=== PATIENT | female | born 1950 | race Hispanic/Latino ===

== ENCOUNTER 2024-08-22 21:29 | Emergency (ER) | payer OTHER, BC ==
--- NOTE | 2024-08-22 22:29 | RAD REPORT ---
EXAMINATION: CT HEAD WITHOUT CONTRAST CT CERVICAL SPINE WITHOUT CONTRAST CLINICAL INDICATION: Brain cancer. Neck pain. Confusion. TECHNIQUE: Axial CT images from the skull base to the vertex without intravenous contrast. Axial CT i mages through the cervical spine were obtained without intravenous contrast. Sagittal and coronal reformatted images were created from the data set. Coronal and sagittal reformatted images were creat ed from the data set. One or more of the following dose reduction techniques were used: Automated exposure control, adjustment of the mA and/or kV according to patient size, and/or iterative reconstr uction. Unless otherwise specified, incidental findings do not require dedicated imaging follow-up. [id number]. Comparison: none FINDINGS: An intracranial bleed is not seen. Ventricles are normal in caliber. Marked low density is present within periventricular, deep and subcortical white matter. No extra-axial fluid collection. No fluid within the sinuses/mastoids No fracture or dislocation is seen involving the cervical spine.. Mild spondylosis cervical spine IMPRESSION: Marked low density is present within periventricular, deep and subcortical white matter. This probabl y is secondary to a demyelinating process. Comparison to previous imaging would be helpful to assess for progression/stability. A cervical fracture is not seen. No high-grade stenosis seen MRI of the brain with contrast may be helpful for further evaluation.
--- NOTE | 2024-08-22 22:30 | RAD REPORT ---
Procedure: Chest Single View HISTORY: Chest pain COMPARISON: none FINDINGS: The lungs appear clear of acute infiltrate. No significant pleural effusion noted. The heart is normal size. IMPRESSION: No acute abnormality is displayed.
[2024-08-22 22:45] LABS: PT Prothrombin Time 11.4 SECONDS (10-13.0)
[2024-08-22 22:50] LABS: Absolute Basophils 0.1 K/uL (0-0.5); Absolute Monocytes 0.4 K/uL (0.1-1.3); Absolute Neutrophil 11.1 K/uL (1.8-8.0); Basophils % 0.6 % (0-1.3); Eosinophils % 0.1 % (0-4.4); Hematocrit 49.2 % (36.0-45.0); Hemoglobin 16.8 g/dL (12.0-15.0); Lymphocytes % 8.2 % (15.3-44.8); MCH 30.7 pg (27.0-35.0); MCHC 34.1 g/dL (32.0-36.0); MCV 89.9 fL (80-100); MPV 8.5 fL (7.6-11.3); Monocytes % 2.9 % (3.3-12.3); Neutrophils % 88.2 % (41.7-73.7); Platelets 213 thou/uL (152-406); RBC Red Blood Cell Count 5.47 M/uL (3.86-4.86); Red Cell Distribution Width 13.3 % (12.1-15.2)
[2024-08-22 22:59] LABS: Albumin 3.3 g/dL (3.4-5.0); Albumin/Globulin Ratio 0.8 (1.1-1.8); Anion Gap 11.6 mEq/L (5.0-15.0); Bilirubin Direct 0.3 mg/dL (0-0.2); Bilirubin Indirect, Calculated 1.2 mg/dL (0.2-0.8); Bilirubin Total 1.5 mg/dL (0.2-1.0); Globulin 4.3 g/dL (2.3-3.5); Magnesium 2.1 mg/dL (1.6-2.4); Potassium 4.6 mEq/L (3.5-5.1); Protein, Total 7.6 g/dL (6.4-8.2); Troponin High Sensitivity 3.6 pg/mL (<58.9)
[2024-08-22] MEDS ORDERED: ONDANSETRON 4 MG/2 ML VIAL ONE (23:06)
[2024-08-22] MEDS ORDERED: METOCLOPRAMIDE 10 MG/2mL INJ ONE (23:06)
[2024-08-22] MEDS ORDERED: NA CHLORIDE 0.9% 1,000 ML ONE (23:11)
[2024-08-23 01:24] LABS: Band Neutrophils 4 % (0-1); Differential Total Cells Count 100; Lymphocytes 6 % (15-42); Monocytes 3 % (0-10); Reactive Lymphocytes 4 %; Segmented Neutrophils 83 % (40-80)
[2024-08-23 01:25] LABS: Blood Morphology Comment NOT SEEN (NOT SEEN); Platelet Estimate ADEQ
[2024-08-23] MEDS ORDERED: CEFTRIAXONE 1000 MG/VIAL ONE (02:11)
[2024-08-23] MEDS ORDERED: NA CHLORIDE 0.9% 50 ML ONE (02:11)
[2024-08-23] MEDS ORDERED: METRONIDAZOLE 500mg IVPB 500 MG/100 ML BAG IV ONE (02:11)
[2024-08-23 02:20] LABS: Specific Gravity 1.022 (1.005-1.030); Sqamous Epithelial None Seen /HPF (None Seen); Urine Bacteria None Seen /HPF (<20); Urine Bilirubin NEGATIVE (Negative); Urine Blood 1+ (Negative); Urine Clarity Clear (Clear); Urine Color Yellow (Yellow); Urine Culture Reflex Order NOT NEEDED; Urine Glucose NEGATIVE (Negative); Urine Ketones TRACE (Negative); Urine Micro Reflex YN NO BILL MICROSCOPIC; Urine Mucus Slight /HPF (None Seen); Urine Nitrite NEGATIVE (Negative); Urine Protein NEGATIVE (Negative); Urine Urobilinogen 2+ (Normal); Urine WBC <5 /HPF (<5); Urine pH 6.5 (5.0-7.0)
--- NOTE | 2024-08-23 03:43 | ER ---
Nurse's Notes [facility] Name: Reina Cao Age: 74 yrs Sex: Female : 1950 Arrival Date: 08/22/2024 Time: 21:29 Bed 27 Private MD: Diagnosis: Acute mental status changes, generalized weakness, abnormal CT scan, Cerebral periventricular demyelination, acute encephalopathy Presentation: 08/22 21:34 Chief complaint: EMS states: FAMILY MEMBER REPORTS SHE IS NOT BEING HER NORMAL. FEELING ha1 WEAK AND A LITTLE CONFUSED AND NAUSEA. 21:34 Coronavirus screen: Client denies travel out of the [place] in the last 14 days. Ebola ha1 Screen: Patient negative for fever greater than or equal to 101.5 degrees Fahrenheit, and additional compatible Ebola Virus Disease symptoms. Initial Sepsis Screen: Does the patient meet any 2 criteria? No. Patient's initial sepsis screen is negative. Does the patient have a suspected source of infection? No. Patient's initial sepsis screen is negative. Risk Assessment: Do you want to hurt yourself or someone else? Patient reports no desire to harm self or others. Onset of symptoms was August 22, 2024. 21:34 Method Of Arrival: EMS: [facility] ha1 21:34 Acuity: ERASMO 3 ha1 Triage Assessment: 21:34 General: Appears comfortable, Behavior is calm, cooperative. Pain: Denies pain. Neuro: ha1 Level of Consciousness is awake, obeys commands, lethargic, Oriented to person, place, situation. Cardiovascular: Patient's skin is warm and dry. Respiratory: Airway is patent Respiratory effort is even, unlabored, Respiratory pattern is regular, symmetrical. GI: Abdomen is round non-distended, Reports nausea. Historical: - Allergies: 21:34 Bees; ha1 - Home Meds: 21:34 Keppra Oral [Active]; Carbidopa-Levodopa Oral [Active]; levetiracetam oral [Active]; ha1 - PMHx: 21:34 Diabetes mellitus; BRAIN CANCER; ha1 - PSHx: 21:34 BRAIN SURGERY; ha1 - Immunization history:: Adult Immunizations up to date. - Infectious Disease History:: Denies. - Social history:: Smoking status: Patient denies any tobacco usage or history of. - Family history:: not pertinent. Screenin/09 01:24 [facility] ED Fall Risk Assessment (Adult) History of falling in the last 3 months, jb4 including since admission No falls in past 3 months (0 pts) Confusion or Disorientation No (0 pts) Intoxicated or Sedated No (0 pts) Impaired Gait No (0 pts) Mobility Assist Device Used No (0 pt) Altered Elimination No (0 pt) Score/Fall Risk Level 0 - 2 = Low Risk Oriented to surroundings, Maintained a safe environment. Abuse screen: Denies threats or abuse. Nutritional screening: No deficits noted. Tuberculosis screening: No symptoms or risk factors identified. Assessment: 08/22 23:30 Reassessment: Pt remains lethargic, and oriented x2. Respirations are even and jb4 unlabored with no s/s of distress noted. 08/23 00:30 Reassessment: Patient appears in no apparent distress at this time. No changes from jb4 previously documented assessment. Patient and/or family updated on plan of care and expected duration. Pain level reassessed. 01:22 Reassessment: Patient appears in no apparent distress at this time. No changes from jb4 previously documented assessment. Patient and/or family updated on plan of care and expected duration. Pain level reassessed. 02:04 Reassessment: Pt noted to be a very difficult stick. IV established by [place] Ann via jb4 ultrasound. Provider made aware of this, instructed to cancel second set of blood cultures and to give antibiotics after the first set. 02:53 Reassessment: Pt remains lethargic. Is now A\\T\\O x1, respirations are even and unlabored jb4 with no s/s of pain or distress noted. 04:00 Reassessment: eyes closed. Respiratory: Airway is patent Respiratory effort is even, ha1 unlabored, Respiratory pattern is regular, symmetrical. 05:14 Reassessment: eyes closed. Respiratory: Airway is patent Respiratory effort is even, ha1 unlabored, Respiratory pattern is regular, symmetrical. 06:00 Reassessment: eyes closed. Respiratory: Airway is patent Respiratory effort is even, ha1 unlabored, Respiratory pattern is regular, symmetrical. 06:10 Reassessment: awaiting of transfer. ha1 10:25 General: Appears in no apparent distress. uncomfortable, Behavior is calm, cooperative, jl7 drowsy. Pain: Denies pain. Neuro: Level of Consciousness is obeys commands, drowsy, responds easily to voice. Oriented to person. Cardiovascular: Patient's skin is warm and dry. Derm: Skin is pink, warm \\T\\ dry. Vital Signs: 08/22 21:34 BP 133 / 107; Pulse 97; Resp 17 S; Temp 99(O); Pulse Ox 98% on R/A; Weight 81.65 kg; ha1 Height 5 ft. 2 in. ; 23:46 BP 106 / 63; Pulse 100; Resp 16; Pulse Ox 98% on R/A; jb4 08/23 01:15 BP 125 / 91; Pulse 87; Resp 16; Pulse Ox 100% on R/A; jb4 02:45 BP 109 / 78; Pulse 79; Resp 13; Pulse Ox 99% on R/A; jb4 04:10 BP 116 / 72; Pulse 77; Resp 16 S; Pulse Ox 100% on R/A; ha1 05:20 BP 102 / 80; Pulse 75; Resp 17 S; Temp 97.4(T); Pulse Ox 100% on R/A; ha1 06:00 BP 101 / 72; Pulse 84; Resp 17 S; Pulse Ox 99% on R/A; ha1 10:23 BP 91 / 60; Pulse 70; Resp 15; Temp 97.6; Pulse Ox 100% ; jl7 08/22 21:34 Body Mass Index 32.92 (81.65 kg, 157.48 cm) ha1 [place] Coma Score: 03:36 Eye Response: to voice(3). Motor Response: obeys commands(6). Verbal Response: sp4 confused(4). Total: 13. NIH Stroke Scale Scores: 03:36 NIHSS Score: 2 sp4 ED Course: 08/22 21:34 Patient arrived in ED. rv1 21:36 Tayo Bain MD is Attending Physician. sp4 21:40 Missed attempt(s): 22 gauge in right hand. attempted by CLEO Ritter tech.. Bleeding jb4 controlled, band aid applied, catheter tip intact. 21:45 Missed attempt(s): 22 gauge in right antecubital area. Bleeding controlled, band aid jb4 applied, catheter tip intact. 21:49 Triage completed. ha1 22:00 Inserted saline lock: 20 gauge in left antecubital area, using aseptic technique. Blood ha1 collected. Flushed with 10 mL NS Accessed peripheral vein via ultrasound, utilizing dynamic ultrasound technique. 22:12 XRAY Chest (1 view) In Process Unspecified. EDMS 22:16 CT Head C Spine In Process Unspecified. EDMS 04 00:00 Patient has correct armband on for positive identification. Bed in low position. Call jb4 light in reach. Side rails up X 1. Provided Education on: plan of care to family. 00:00 No provider procedures requiring assistance completed. jb4 02:17 Geraldo Dupont, RN is Primary Nurse. jb4 03:32 Initiated transfer with Janet at [facility]. rv1 03:50 Doc to Doc with Neurologist. rv1 04:00 Doc to Doc with hospitalist. rv1 04:16 Troponin High Sensitivity Sent. rk3 05:28 Called transfer center to get update on Transfer. Cinthia informed that the patient was rv1 on the wait list for a tele bed. Transfer center will call back when one becomes available. 07:06 Primary Nurse role handed off by Geraldo Dupont, RN bd 07:12 contacted Jessica at [facility] transfer center, "bed is still pending". bd 10:00 pt accepted in transfer to [facility] rm [id number] Hatfield admin approval given by coby Torre. 10:25 Client placed on continuous cardiac and pulse oximetry monitoring. NIBP monitoring jl7 applied. hospital monitor on. Pulse ox on. 10:25 Patient transferred, IV remains in place. intact, No redness/swelling at site. jl7 Administered Medications: 08/22 23:20 Drug: NS 0.9% IV 1000 ml IV at 1 bolus Per protocol; to be given as a bolus over 60 jb4 minutes Route: IV; Rate: 1 bolus; Site: left antecubital; 08/23 00:20 Follow up: IV Status: Completed infusion; IV Intake: 1000ml vc1 08/22 23:20 Drug: metoCLOPramide IVP 10 mg IVP once; over 1 to 2 minutes Route: IVP; Site: left jb4 antecubital; 08/23 00:17 Follow up: Response: No adverse reaction; Marked relief of symptoms jb4 08/22 23:20 Drug: Ondansetron IVP 8 mg IVP once; over 2 minutes Route: IVP; Site: left antecubital; jb4 08/23 00:17 Follow up: Response: No adverse reaction; Marked relief of symptoms jb4 02:17 Drug: Rocephin - Rocephin (cefTRIAXone) IVPB 1 grams IVPB once over 30 mins; (mix in 50 jb4 mL NS) Route: IVPB; Infused Over: 30 mins; Site: left antecubital; 02:47 Follow up: Response: No adverse reaction; Marked relief of symptoms; IV Status: jb4 Completed infusion; IV Intake: 50ml 02:47 Drug: metroNIDAZOLE IVPB 500 mg 100 ml IVPB at 200 ml/hr once over 30 mins Volume: 100 jb4 ml; Route: IVPB; Rate: 200 ml/hr; Infused Over: 30 mins; Site: left antecubital; 03:00 Follow up: IV Status: Completed infusion vc1 05:55 Drug: Ketorolac IVP 30 mg IVP once Route: IVP; Site: left antecubital; vc1 06:20 Follow up: Response: No adverse reaction; Marked relief of symptoms ha1 05:55 Drug: Ondansetron IVP 4 mg IVP once; over 2 minutes Route: IVP; Site: left antecubital; vc1 06:20 Follow up: Response: No adverse reaction; Marked relief of symptoms ha1 08:12 Drug: D5-NS IV 1000 ml IV at 100 ml/hr continuous Route: IV; Rate: 100 ml/hr; Site: ph left antecubital; Medication: 05:28 VIS not applicable for this client. ha1 Intake: 00:20 IV: 1000ml; Total: 1000ml. vc1 02:47 IV: 50ml; Total: 1050ml. jb4 Outcome: 03:42 ER care complete, transfer ordered by MD. russell 11:44 Transferred by ground EMS to [facility], Transfer form completed. jl7 X-rays sent w/ patient. 11:44 Condition: stable 11:44 Discharge instructions given to EMS, Instructed on the need for admit, 11:44 Patient left the ED. jl7 NIH Stroke Scale - NIH Stroke Score Date: 08/23/2024 Time: 03:36 Total Score = 2 10. Dysarthria (speech clarity - read or repeat words) - 0(Normal) 11. Extinction and Inattention (visual/tactile/auditory/spatial/personal) - 0(No abnormality) 1a. Level of Consciousness (LOC) - 0(Alert) 1b. Level of Consciousness (LOC) (Month \\T\\ Age) - 2(Neither) 1c. LOC Commands (Open \\T\\ Closes Eyes/Customer Operations Intern) - 0(Both) 2. Best Gaze (Lateral Gaze Paresis) - 0(Normal) 3. Visual Field Loss - 0(No visual loss) 4. Facial Palsy - 0(Normal) 5a. Left Arm: Motor (10-second hold) - 0(No drift) 5b. Right Arm: Motor (10-second hold) - 0(No drift) 6a. Left Leg: Motor (5-second hold - always test supine) - 0(No drift) 6b. Right Leg: Motor (5-second hold - always test supine) - 0(No drift) 7. Limb Ataxia (finger/nose \\T\\ heel/wright - test with eyes open) - 0(Absent) 8. Sensory Loss (pinprick arms/legs/face) - 0(Normal) 9. Best Language: Aphasia (description/naming/reading) - 0(No aphasia) Initials: sp4 Signatures: Dispatcher [employer] EDMS Edwige Brown Patricia, RN RN Geraldo Rush, RN RN jb4 Kimmie Kyle RN RN jl7 Annalisa Bailey RN RN 1 Marissa Jaimes, RN RN ha1 Rita Shore rv1 Tayo Bain MD MD sp4 Erick Wilhelm rk3 Corrections: (The following items were deleted from the chart) 08/22 21:52 21:34 Allergies: No Known Allergies; ha1 ha1 21:54 21:34 Chief complaint: EMS states: FAMILY MEMBER REPORTS SHE IS NOT BEING HER ha1 NORMAL. FEELING WEAK AND A LITTLE CONFUSED ha1 08/23 05:31 03:32 Initiated transfer with Cinthia at [facility] rv1 rv1
--- NOTE | 2024-08-23 03:43 | EDPHYS ---
Physician Documentation [facility] Name: Reina Cao Age: 74 yrs Sex: Female : 1950 Arrival Date: 08/22/2024 Time: 21:29 Bed 27 Private MD: ED Physician Tayo Bain HPI: 08/23 01:21 This 74 yrs old Female presents to ER via EMS with complaints of Altered sp4 Mental Status. 03:33 74-year-old female with history of prior brain mass resection at [facility] 3 years sp4 ago history of diabetes as well, presents with acute onset of lethargy and confusion starting at 12 PM. Patient reportedly had several episodes of bilious vomiting loss of appetite he also developed generalized weakness. Patient's family then reported patient was not acting herself.. On arrival patient is alert and oriented to self and others only. No signs of lateralizing deficit. Historical: - Allergies: 08/22 21:34 Bees; ha1 - Home Meds: 21:34 Keppra Oral [Active]; Carbidopa-Levodopa Oral [Active]; levetiracetam oral [Active]; ha1 - PMHx: 21:34 Diabetes mellitus; BRAIN CANCER; ha1 - PSHx: 21:34 BRAIN SURGERY; ha1 - Immunization history:: Adult Immunizations up to date. - Infectious Disease History:: Denies. - Social history:: Smoking status: Patient denies any tobacco usage or history of. - Family history:: not pertinent. ROS: 08/23 03:36 Constitutional: Negative for fever, chills, and weight loss, positive for acute sp4 generalized weakness, positive for vomiting, positive for acute confusion All other systems are negative, Exam: 03:36 Constitutional: This is a well developed, well nourished patient who is awake, alert, sp4 and in no acute distress. Head/Face: Normocephalic, atraumatic. Eyes: Pupils equal round and reactive to light, extra-ocular motions intact. Lids and lashes normal. Conjunctiva and sclera are not injected. Cornea within normal limits. Periorbital areas with no swelling, redness, or edema. ENT: Nares patent. No nasal discharge, no septal abnormalities noted. Tympanic membranes are normal and external auditory canals are clear. Oropharynx with no redness, swelling, or masses, exudates, or evidence of obstruction, uvula midline. Mucous membranes moist. Neck: Trachea midline, no thyromegaly or masses palpated, and no cervical lymphadenopathy. Supple, full range of motion without nuchal rigidity, or vertebral point tenderness. Chest/axilla: Normal chest wall appearance and motion. Nontender with no deformity. No lesions are appreciated. Cardiovascular: Regular rate and rhythm with a normal S1 and S2. No gallops, murmurs, or rubs. Normal PMI, no JVD. No pulse deficits. Respiratory: Lungs have equal breath sounds bilaterally, clear to auscultation and percussion. No rales, rhonchi or wheezes noted. No increased work of breathing, no retractions or nasal flaring. Abdomen/GI: Soft, with normal bowel sounds. No distension or tympany. No guarding or rebound. No evidence of tenderness throughout. Back: No spinal tenderness. No costovertebral tenderness. Female : Normal external genitalia. Skin: Warm, dry with normal turgor. Normal color with no rashes, no lesions, and no evidence of cellulitis. MS/ Extremity: Pulses equal, no cyanosis. Neurovascular intact. Full, normal range of motion. Neuro: Awake and alert, oriented to person, Cranial nerves II-XII grossly intact. Motor strength 5/5 in all extremities. Sensory grossly intact. Patient has generalized weakness no signs of focal deficits, is difficult time following commands during examination. No signs of lateralizing weakness 03:40 ECG was reviewed by the Attending Physician. EKG at 2203 normal sinus rhythm rate 94. sp4 Vital Signs: 08/22 21:34 BP 133 / 107; Pulse 97; Resp 17 S; Temp 99(O); Pulse Ox 98% on R/A; Weight 81.65 kg; ha1 Height 5 ft. 2 in. ; 23:46 BP 106 / 63; Pulse 100; Resp 16; Pulse Ox 98% on R/A; jb4 08/23 01:15 BP 125 / 91; Pulse 87; Resp 16; Pulse Ox 100% on R/A; jb4 02:45 BP 109 / 78; Pulse 79; Resp 13; Pulse Ox 99% on R/A; jb4 04:10 BP 116 / 72; Pulse 77; Resp 16 S; Pulse Ox 100% on R/A; ha1 05:20 BP 102 / 80; Pulse 75; Resp 17 S; Temp 97.4(T); Pulse Ox 100% on R/A; ha1 06:00 BP 101 / 72; Pulse 84; Resp 17 S; Pulse Ox 99% on R/A; ha1 10:23 BP 91 / 60; Pulse 70; Resp 15; Temp 97.6; Pulse Ox 100% ; jl7 08 21:34 Body Mass Index 32.92 (81.65 kg, 157.48 cm) ha1 NIH Stroke Scale Scores: 03:36 NIHSS Score: 2 sp4 Stanislaw Coma Score: 03:36 Eye Response: to voice(3). Motor Response: obeys commands(6). Verbal Response: sp4 confused(4). Total: 13. MDM: 01:04 Medical Screening Exam initiated sp4 01:24 ED course: EXAMINATION: CT HEAD WITHOUT CONTRAST CT CERVICAL SPINE WITHOUT CONTRAST sp4 CLINICAL INDICATION: Brain cancer. Neck pain. Confusion. TECHNIQUE: Axial CT images from the skull base to the vertex without intravenous contrast. Axial CT images through the cervical spine were obtained without intravenous contrast. Sagittal and coronal reformatted images were created from the data set. Coronal and sagittal reformatted images were created from the data set. One or more of the following dose reduction techniques were used: Automated exposure control, adjustment of the mA and/or kV according to patient size, and/or iterative reconstruction. Unless otherwise specified, incidental findings do not require dedicated imaging follow-up. [id number]. Comparison: none FINDINGS: An intracranial bleed is not seen. Ventricles are normal in caliber. Marked low density is present within periventricular, deep and subcortical white matter. No extra-axial fluid collection. No fluid within the sinuses/mastoids No fracture or dislocation is seen involving the cervical spine.. Mild spondylosis cervical spine IMPRESSION: Marked low density is present within periventricular, deep and subcortical white matter. This probably is secondary to a demyelinating process. Comparison to previous imaging would be helpful to assess for progression/stability. A cervical fracture is not seen. No high-grade stenosis seen MRI of the brain with contrast may be helpful for further evaluation. . ED course: Procedure: Chest Single View HISTORY: Chest pain COMPARISON: none FINDINGS: The lungs appear clear of acute infiltrate. No significant pleural effusion noted. The heart is normal size. IMPRESSION: No acute abnormality is displayed. . 03:39 Differential Diagnosis: CVA, electrolyte abnormality, alcohol intoxication, sp4 hypoglycemia, pneumonia, seizure, sepsis, UTI. Data reviewed: vital signs, nurses notes, EMS record, lab test result(s), EKG, radiologic studies, doppler, plain films. Consideration of Admission/Observation Escalation of care including admission/observation considered. Management of patient was discussed with the following: Manager Development: Marilyn CORREA -patient discussed extensively with neurologist on-call. Neurologist advised transfer for higher level of care including MRI of the entire neural axis possibly LP. 03:52 ED course: CT revealed - IMPRESSION: Marked low density is present within sp4 periventricular, deep and subcortical white matter. This probably is secondary to a demyelinating process. Comparison to previous imaging would be helpful to assess for progression/stability. A cervical fracture is not seen. No high-grade stenosis seen MRI of the brain with contrast may be helpful for further evaluation. ED course: At this time patient was discussed with [facility] neurologist who accepted patient for transfer for further investigation including MRI possibly LP.. 08/22 21:36 Order name: Basic Metabolic Panel; Complete Time: :4 08/22 21:36 Order name: CBC with Diff; Complete Time: 01:31 4 08/22 21:36 Order name: LFT's; Complete Time: :4 08/22 21:36 Order name: Magnesium; Complete Time: :4 08/22 21:36 Order name: NT PRO-BNP; Complete Time: :4 08/22 21:36 Order name: PT-INR; Complete Time: :4 08/22 21:36 Order name: Troponin HS; Complete Time: : sp4 08/22 21:37 Order name: Urinalysis W/Microscopic; Complete Time: 02:29 sp4 08/22 21:37 Order name: Lactate w/ 2H reflex if indic.; Complete Time: : sp4 08/22 21:37 Order name: CK; Complete Time: : sp4 08/22 22:59 Order name: Manual Differential; Complete Time: 01:31 EDMS 08/23 01:34 Order name: Blood Culture Adult (2) 4 08/23 04:01 Order name: Troponin High Sensitivity 4 08/22 21:36 Order name: XRAY Chest (1 view); Complete Time: 01:17 sp4 08/22 21:37 Order name: CT Head C Spine; Complete Time: 01:17 sp4 08/22 21:36 Order name: Cardiac monitoring; Complete Time: 23:03 sp4 08/22 21:36 Order name: EKG - Nurse/Tech; Complete Time: 22:04 sp4 08/22 21:36 Order name: IV Saline Lock; Complete Time: 23:03 sp4 08/22 21:36 Order name: Labs collected and sent; Complete Time: 23:03 sp4 08/22 21:36 Order name: O2 Per Protocol; Complete Time: 22:05 sp4 08/22 21:36 Order name: O2 Sat Monitoring; Complete Time: 22:05 4 08/23 01:35 Order name: Cath; Complete Time: 02:01 sp4 EC/08 22:03 Rate is 94 beats/min. Rhythm is regular, Normal Sinus Rhythm. QRS [place] is Normal. MS sp4 interval is normal. QRS interval is normal. QT interval is normal. No Q waves. T waves are Normal. No ST changes noted. Clinical impression: No evidence of ischemia. Interpreted by me. Reviewed by me. Administered Medications: 23:20 Drug: NS 0.9% IV 1000 ml IV at 1 bolus Per protocol; to be given as a bolus over 60 jb4 minutes Route: IV; Rate: 1 bolus; Site: left antecubital; 08/23 00:20 Follow up: IV Status: Completed infusion; IV Intake: 1000ml vc1 08/22 23:20 Drug: metoCLOPramide IVP 10 mg IVP once; over 1 to 2 minutes Route: IVP; Site: left [facility] antecubital; 08/23 00:17 Follow up: Response: No adverse reaction; Marked relief of symptoms 4 08/22 23:20 Drug: Ondansetron IVP 8 mg IVP once; over 2 minutes Route: IVP; Site: left antecubital; [facility] 08/23 00:17 Follow up: Response: No adverse reaction; Marked relief of symptoms jb4 02:17 Drug: Rocephin - Rocephin (cefTRIAXone) IVPB 1 grams IVPB once over 30 mins; (mix in 50 jb4 mL NS) Route: IVPB; Infused Over: 30 mins; Site: left antecubital; 02:47 Follow up: Response: No adverse reaction; Marked relief of symptoms; IV Status: jb4 Completed infusion; IV Intake: 50ml 02:47 Drug: metroNIDAZOLE IVPB 500 mg 100 ml IVPB at 200 ml/hr once over 30 mins Volume: 100 jb4 ml; Route: IVPB; Rate: 200 ml/hr; Infused Over: 30 mins; Site: left antecubital; 03:00 Follow up: IV Status: Completed infusion vc1 05:55 Drug: Ketorolac IVP 30 mg IVP once Route: IVP; Site: left antecubital; vc1 06:20 Follow up: Response: No adverse reaction; Marked relief of symptoms ha1 05:55 Drug: Ondansetron IVP 4 mg IVP once; over 2 minutes Route: IVP; Site: left antecubital; vc1 06:20 Follow up: Response: No adverse reaction; Marked relief of symptoms ha1 08:12 Drug: D5-NS IV 1000 ml IV at 100 ml/hr continuous Route: IV; Rate: 100 ml/hr; Site: ph left antecubital; Disposition Summary: 08/23/24 03:42 Transfer Ordered Notes: Transfer Location: [facility] sp4 Reason: Higher level of care sp4 Condition: Stable sp4 Problem: new sp4 Symptoms: have improved sp4 Accepting Physician: [facility]'s attending neurologist(08/23/24 11:44) jl7 Diagnosis - Acute mental status changes, generalized weakness, abnormal CT scan, Cerebral sp4 periventricular demyelination, acute encephalopathy Forms: - Medication Reconciliation Form sp4 - SBAR form sp4 NIH Stroke Scale - NIH Stroke Score Date: 08/23/2024 Time: 03:36 Total Score = 2 10. Dysarthria (speech clarity - read or repeat words) - 0(Normal) 11. Extinction and Inattention (visual/tactile/auditory/spatial/personal) - 0(No abnormality) 1a. Level of Consciousness (LOC) - 0(Alert) 1b. Level of Consciousness (LOC) (Month \T\ Age) - 2(Neither) 1c. LOC Commands (Open \T\ Closes Eyes/Yoke Setter) - 0(Both) 2. Best Gaze (Lateral Gaze Paresis) - 0(Normal) 3. Visual Field Loss - 0(No visual loss) 4. Facial Palsy - 0(Normal) 5a. Left Arm: Motor (10-second hold) - 0(No drift) 5b. Right Arm: Motor (10-second hold) - 0(No drift) 6a. Left Leg: Motor (5-second hold - always test supine) - 0(No drift) 6b. Right Leg: Motor (5-second hold - always test supine) - 0(No drift) 7. Limb Ataxia (finger/nose \T\ heel/wright - test with eyes open) - 0(Absent) 8. Sensory Loss (pinprick arms/legs/face) - 0(Normal) 9. Best Language: Aphasia (description/naming/reading) - 0(No aphasia) Initials: sp4 Signatures: Dispatcher [employer] EDMS Abbea Chambers, RN Geraldo Beach ph, RN RN jb4 Kimmie Kyle RN RN jl7 Annalisa Bailey RN RN 1 Marissa Jaimes, RN RN [email or web address] Tayo Bain MD MD sp4 Corrections: (The following items were deleted from the chart) 08/22 21:37 21:37 BASIC METABOLIC PANEL+C.LAB.BRZ ordered. EDMS EDMS 21:37 21:37 CBC+H.LAB.BRZ ordered. EDMS EDMS 21:37 21:37 HEPATIC FUNCTION+C.LAB.BRZ ordered. EDMS EDMS 21:37 21:37 MAGNESIUM+C.LAB.BRZ ordered. EDMS EDMS 21:37 21:37 PROBNP+C.LAB.BRZ ordered. EDMS EDMS 21:37 21:37 PROTIME (+INR)+COAG.LAB.BRZ ordered. EDMS EDMS 21:37 21:37 Troponin High Sensitivity+C.LAB.BRZ ordered. EDMS EDMS 21:37 21:37 Chest Single View+RAD.RAD.BRZ ordered. EDMS EDMS 21:52 21:34 Allergies: No Known Allergies; ha1 ha1 08/23 11:44 03:[address] [facility] attending neurologist sp4 jl7
[2024-08-23] MEDS ORDERED: KETOROLAC 30 MG/ML INJ ONE (05:49)
[2024-08-23] MEDS ORDERED: ONDANSETRON 4 MG/2 ML VIAL ONE (05:49)
[2024-08-23] MEDS ORDERED: D5 0.9 NS 1,000 ML IV ONE (08:03)
--- NOTE | 2024-08-23 11:57 | EKG ---
Test Date: 2024-08-22 Test Time: 22:03:04 Courtesy Driver: FARZANEH MEASUREMENT RESULTS: Intervals: Rate: 94 AR: 186 QRSD: 66 QT: 336 QTc: 420 [place]ey[place]: P: 37 AR: 186 QRS: 9 T: 21 INTERPRETIVE STATEMENTS: Normal sinus rhythm Low voltage QRS Cannot rule out Anterior infarct, age undetermined Abnormal ECG No previous ECG available for comparison Electronically Signed On 08-23-24 11:56:28 CDT by Octavio Leal
[2024-08-23 12:13] VITALS: BP 91/60; TEMP 97.6; O2SAT 100
== END 2024-08-23 11:44 | disposition short-term general hospital (02) ==
LOC: ER 21:29
DX: R41.82 Altered mental status, unspecified (principal); R53.1 Weakness; G37.9 Demyelinating disease of central nervous system, unspecified; G93.40 Encephalopathy, unspecified; R93.0 Abnormal findings on diagnostic imaging of skull and head, not elsewhere classified; Z85.841 Personal history of malignant neoplasm of brain
CPT/HCPCS: 93005; 87040; 85025; 81001; 80048; 36415; 83735; 82550; 85610; 80076; 83605; 84484 ×2; 83880; 70450; 72125; 71045; J2765; J2405 ×2; J7042; J7030; J0696